=== PATIENT | female | born 1960 ===

== ENCOUNTER 2021-02-28 12:01 | Outpatient (CLI) | payer OTHER | END 2021-02-28 13:22 | disposition home or self-care (01) | LOC: OFIC 805 12:01 | PROVIDERS: ATTEND Otolaryngology | DX: R09.81 Nasal congestion (principal); Q38.1 Ankyloglossia; F14.988 Cocaine use, unspecified with other cocaine-induced disorder ==

== ENCOUNTER → 2021-03-04 12:13 | Outpatient (CLI) | payer OTHER | END | disposition home or self-care (01) | LOC: EKG 12:13 | PROVIDERS: ATTEND Internal Medicine | DX: I11.9 Hypertensive heart disease without heart failure (principal) ==